=== PATIENT | male | born 1975 | race Two or more races ===

== ENCOUNTER 2020-01-04 11:25 | Outpatient (CLI) | payer OTHER | END 2020-01-04 11:41 | disposition home or self-care (01) | LOC: LAB 11:25 | PROVIDERS: ATTEND Internal Medicine Hematology & Oncology | DX: D50.8 Other iron deficiency anemias (principal); D55.0 Anemia due to glucose-6-phosphate dehydrogenase [G6PD] deficiency; D63.1 Anemia in chronic kidney disease; E03.8 Other specified hypothyroidism; R97.0 Elevated carcinoembryonic antigen [CEA]; R97.8 Other abnormal tumor markers; G47.33 Obstructive sleep apnea (adult) (pediatric); I10 Essential (primary) hypertension; D68.8 Other specified coagulation defects ==

== ENCOUNTER 2020-04-01 09:57 | Outpatient (CLI) | payer OTHER | END 2020-04-01 10:10 | disposition home or self-care (01) | LOC: SONOGRAMA 09:57 → MAMO-SONO 10:15 | PROVIDERS: ATTEND Internal Medicine Hematology & Oncology | DX: D50.8 Other iron deficiency anemias (principal); G47.33 Obstructive sleep apnea (adult) (pediatric); I10 Essential (primary) hypertension ==

== ENCOUNTER → 2020-04-01 10:21 | Outpatient (CLI) | payer OTHER | END | disposition home or self-care (01) | LOC: LAB 10:21 | PROVIDERS: ATTEND Internal Medicine Hematology & Oncology | DX: D50.8 Other iron deficiency anemias (principal); I10 Essential (primary) hypertension; D51.8 Other vitamin B12 deficiency anemias; D51.1 Vitamin B12 deficiency anemia due to selective vitamin B12 malabsorption with proteinuria; D51.0 Vitamin B12 deficiency anemia due to intrinsic factor deficiency; E03.8 Other specified hypothyroidism; E06.3 Autoimmune thyroiditis; G47.33 Obstructive sleep apnea (adult) (pediatric) ==

== ENCOUNTER 2020-05-14 10:24 | Outpatient (CLI) | payer OTHER | END 2020-05-14 11:25 | disposition home or self-care (01) | LOC: SONOGRAMA 10:24 | PROVIDERS: ATTEND Pathology Anatomic Pathology & Clinical Pathology | DX: E04.2 Nontoxic multinodular goiter (principal) ==

== ENCOUNTER → 2020-06-15 09:50 | Outpatient (CLI) | payer OTHER | END | disposition home or self-care (01) | LOC: LAB 09:50 | PROVIDERS: ATTEND Surgery | DX: Z12.5 Encounter for screening for malignant neoplasm of prostate (principal) ==

== ENCOUNTER 2024-01-13 19:30 | Emergency (ER) | payer OTHER ==
[~2024-01-13] VITALS: Ht 170.2 cm; Wt 129.3 kg
[2024-01-13] MEDS ORDERED: HYDROCHLOROTHIA25 MG PO (20:54)
[2024-01-13] MEDS ORDERED: IRBESARTAN300 MG PO (20:55)
[2024-01-13] MEDS ORDERED: TETANUS & DIPHTHERIA TOX,ADULT 0.5 ML VIAL IM ONE (21:30)
[2024-01-13] MEDS ORDERED: TETANUS DIPHTHERIA TOX. ADSOR 5 ML VIAL IM ONE (21:32)
[2024-01-13] MEDS ORDERED: POVIDONE-IODINE 118 ML BOTT TOP ONE (21:38)
[2024-01-13] MEDS ORDERED: LIDOCAINE HCL 1% 10ML VIAL ONE (21:38)
== END 2024-01-14 04:01 | disposition home or self-care (01) ==
LOC: ER 19:31
DX: S61.422A Laceration with foreign body of left hand, initial encounter (principal); W25.XXXA Contact with sharp glass, initial encounter; Y93.89 Activity, other specified; Y92.89 Other specified places as the place of occurrence of the external cause; I10 Essential (primary) hypertension